=== PATIENT | male | born 1975 | race African-American/Black ===

== ENCOUNTER 2021-11-10 12:48 | Inpatient (IN) | payer MEDICAID ==
[~2021-11-10] VITALS: Ht 251.5 cm; Wt 58.6 kg
[2021-11-10] MEDS ORDERED: SODIUM CHLORIDE 0.9% 1,000 ML IV ONE (13:30)
[2021-11-10] MEDS ORDERED: MORPHINE SULFATE 2 MG/ML CPJ (NOT FOR IM USE) IV ONE (13:30)
[2021-11-10] MEDS ORDERED: CHLORDIAZEPOXIDE 25MG CAPSULE PO ONE ×2 (14:00→17:45)
[2021-11-10 15:00] LABS: HEMATOCRIT. 44.8 % (42.0-52.0); HEMOGLOBIN. 14.9 g/dL (14.0-18.0); MEAN CORPUSCULAR VOLUME 99.7 fL (80.0-94.0); MEAN PLATELET VOLUME 8.8 fl (7.4-10.4); PLATELET 130 x1000/uL (130-400); RED CELL DISTRIBUTION WIDTH 14.5 % (11.6-14.6)
[2021-11-10 15:07] LABS: CHLORIDE 84 mEq/L (98-107)
[2021-11-10] MEDS ORDERED: ONDANSETRON HCL 4MG/2ML INJ IV PRN ×2 (15:30→20:15)
[2021-11-10] MEDS ORDERED: MORPHINE SULFATE 4 MG/ML CPJ (NOT FOR IM USE) IV ONE (15:45)
[2021-11-10 16:56] LABS: CLARITY URINE CLOUDY (CLEAR); COLOR URINE DARK YELLOW (YELLOW); KETONES URINE 3+ (NEGATIVE); LEUKOCYTE ESTERASE URINE TRACE (NEGATIVE); NITRITE URINE NEGATIVE (NEGATIVE); OCCULT BLOOD URINE 3+ (NEGATIVE); PROTEIN URINE 2+ (NEGATIVE); SPECIFIC GRAVITY URINE 1.023 (1.005-1.030)
[2021-11-10 17:04] LABS: PLATELET ESTIMATE NORMAL
[2021-11-10] MEDS ORDERED: DEXT 5%/0.9% NACL 1,000 ML IV ONE (17:15)
[2021-11-10] MEDS ORDERED: CEFTRIAXONE 2 G PREMIX 50 ML IV ONE (17:45)
[2021-11-10] MEDS ORDERED: CEFTRIAXONE 2 G in DEXTROSE 5% WATER 50 ML IV NR (18:30)
[2021-11-10 20:00] VITALS: BP 136/80
[2021-11-10] MEDS ORDERED: FOLIC ACID 1 MG, THIAMINE HCL 100 MG, MVI, ADULT NO.1 10 ML in DEXTROSE 5% WATER 1,000 ML IV NR ×4 (20:00)
[2021-11-10] MEDS ORDERED: GUAIFENESIN 200MG/10ML SUGAR FREE UDC PO PRN (20:15)
[2021-11-10] MEDS ORDERED: MAGNESIUM/ALUMINUM HYDROXIDE/SIMETHICONE 30ML UDC PO PRN (20:15)
[2021-11-10] MEDS ORDERED: MORPHINE SULFATE 2 MG/ML CPJ (NOT FOR IM USE) IV PRN (20:15)
[2021-11-10] MEDS ORDERED: DIPHENHYDRAMINE 50MG/ML VIAL IV PRN (20:15)
[2021-11-10] MEDS ORDERED: IPRATROPIUM/ALBUTEROL 0.5-3(2.5)MG/3ML NEB HHN PRN (20:15)
[2021-11-10] MEDS ORDERED: DIAZEPAM 5 MG/ML 2ML CPJ IV PRN (20:15)
[2021-11-10] MEDS ORDERED: DOCUSATE SODIUM 100MG CAPSULE PO PRN (20:15)
[2021-11-10] MEDS ORDERED: CLONIDINE 0.1MG TABLET PO PRN (20:15)
[2021-11-10] MEDS ORDERED: HYDROCODONE/ACETAMINOPHEN 5/325MG TABLET PO PRN (20:15)
[2021-11-10 22:00] VITALS: BP 134/80
[2021-11-10] MEDS ORDERED: CEFTRIAXONE 1,000 MG in DEXTROSE 5% WATER 50 ML IV SCH (22:00)
[2021-11-10] MEDS: SODIUM BICARBONATE 150 MEQ in SODIUM CHLORIDE 0.45% 1,000 ML IV SCH (22:55)
[2021-11-10] MEDS: CHLORDIAZEPOXIDE 25MG CAPSULE PO SCH (23:08)
[2021-11-11] MEDS ORDERED: DEXT 5%/LACTATED RINGERS 1,000 ML IV SCH (04:00)
[2021-11-11] MEDS: CHLORDIAZEPOXIDE 25MG CAPSULE PO SCH ×3 (05:14→21:08)
[2021-11-11] MEDS: SODIUM BICARBONATE 150 MEQ in SODIUM CHLORIDE 0.45% 1,000 ML IV SCH ×2 (05:27→13:59)
[2021-11-11 08:00] VITALS: BP 130/84
[2021-11-11] MEDS: MULTIVITAMINS,THER W-MINERALS TABLET PO SCH (08:27)
[2021-11-11] MEDS: THIAMINE HCL 100MG TABLET PO SCH (08:27)
[2021-11-11] MEDS ORDERED: CEFTRIAXONE 1 G PREMIX 50 ML IV SCH (09:00)
[2021-11-11 11:44] LABS: BASOPHILS % 0.2 % (0.0-2.0); EOSINOPHILS % 0.1 % (0.0-5.0); HEMATOCRIT. 38.8 % (42.0-52.0); HEMOGLOBIN. 13.5 g/dL (14.0-18.0); LYMPHOCYTES % 13.1 % (20.0-50.0); MEAN CORPUSCULAR HEMOGLOBIN 33.7 pg (28.0-32.0); MEAN CORPUSCULAR VOLUME 97.4 fL (80.0-94.0); MEAN PLATELET VOLUME 9.2 fl (7.4-10.4); MONOCYTES % 4.3 % (2.0-8.0); NEUTROPHILS % 82.3 % (40.0-76.0); PLATELET 96 x1000/uL (130-400); RED BLOOD CELL COUNT 3.99 mill/uL (4.7-6.1); RED CELL DISTRIBUTION WIDTH 14.3 % (11.6-14.6)
[2021-11-11 12:00] VITALS: BP 103/66
[2021-11-11 12:09] LABS: CHLORIDE 90 mEq/L (98-107)
[2021-11-11 12:44] LABS: BETA HYDROXYBUTYRATE 0.5 mMol/L (0.0-0.3); HDL CHOLESTEROL 94 mg/dL (40-59); LDL CHOLESTEROL 48 mg/dL (5-100)
[2021-11-11 13:02] LABS: HEPATITIS B SURFACE ANTIGEN NEGATIVE
[2021-11-11 13:17] LABS: CREATINE KINASE 11572 IU/L (39-308)
[2021-11-11 16:00] VITALS: BP 113/80
[2021-11-11] MEDS ORDERED: NALOXONE HCL 0.4MG/ML VIAL IV PRN (17:00)
[2021-11-11] MEDS: CEFTRIAXONE 1,000 MG in DEXTROSE 5% WATER 50 ML IV SCH (17:27)
[2021-11-11] MEDS: PANTOPRAZOLE SODIUM 40 MG/VIAL IV SCH (17:43)
[2021-11-11 18:36] LABS: TOTAL IRON BINDING CAPACITY 365 ug/dL (250-450)
[2021-11-11 18:39] LABS: PROTHROMBIN TIME 10.8 sec (9.6-11.0)
[2021-11-11 19:05] LABS: FOLIC ACID (FOLATE) SERUM >20 ng/mL ng/mL (>5.38); VITAMIN B12 SERUM 906 pg/mL (211-911)
[2021-11-11] MEDS: NICOTINE 14MG PATCH TD SCH (19:55)
[2021-11-11 20:00] VITALS: BP 105/73
[2021-11-11 20:17] LABS: FERRITIN 2261 ng/mL (22-322)
[2021-11-11] MEDS ORDERED: DIAZEPAM 5 MG TABLET PO PRN (21:15)
[2021-11-12] VITALS: BP 128/78
[2021-11-12] MEDS: SODIUM BICARBONATE 150 MEQ in SODIUM CHLORIDE 0.45% 1,000 ML IV SCH ×2 (00:04→09:10)
[2021-11-12] MEDS: DIAZEPAM 5 MG TABLET PO PRN (01:51)
[2021-11-12 04:00] VITALS: BP 117/78
[2021-11-12] MEDS: CHLORDIAZEPOXIDE 25MG CAPSULE PO SCH ×3 (05:23→20:52)
[2021-11-12 08:00] VITALS: BP 117/79
[2021-11-12] MEDS: NICOTINE 14MG PATCH TD SCH (09:09)
[2021-11-12] MEDS: PANTOPRAZOLE SODIUM 40 MG/VIAL IV SCH (09:09)
[2021-11-12] MEDS: MULTIVITAMINS,THER W-MINERALS TABLET PO SCH (09:09)
[2021-11-12] MEDS: THIAMINE HCL 100MG TABLET PO SCH (09:09)
[2021-11-12] MEDS ORDERED: FAMOTIDINE 20MG/2ML VIAL IV SCH (10:00)
[2021-11-12 11:01] LABS: BASOPHILS % 0.2 % (0.0-2.0); EOSINOPHILS % 0.7 % (0.0-5.0); HEMATOCRIT. 36.1 % (42.0-52.0); HEMOGLOBIN. 12.1 g/dL (14.0-18.0); LYMPHOCYTES % 19.8 % (20.0-50.0); MEAN CORPUSCULAR HEMOGLOBIN 33.3 pg (28.0-32.0); MEAN CORPUSCULAR VOLUME 99.7 fL (80.0-94.0); MEAN PLATELET VOLUME 9.4 fl (7.4-10.4); NEUTROPHILS % 72.3 % (40.0-76.0); PLATELET 77 x1000/uL (130-400); RED BLOOD CELL COUNT 3.62 mill/uL (4.7-6.1); RED CELL DISTRIBUTION WIDTH 13.8 % (11.6-14.6)
[2021-11-12 12:00] VITALS: BP 108/77
[2021-11-12] MEDS: SODIUM CHLORIDE 0.9% 1,000 ML IV SCH ×2 (12:21→20:53)
[2021-11-12 14:21] LABS: CHLORIDE 92 mEq/L (98-107)
[2021-11-12] MEDS ORDERED: POTASSIUM CHLORIDE 20MEQ TABLET SR PO NR (15:45)
[2021-11-12 16:00] VITALS: BP 113/73
[2021-11-12] MEDS: CEFTRIAXONE 1,000 MG in DEXTROSE 5% WATER 50 ML IV SCH (17:17)
[2021-11-12 20:00] VITALS: BP 116/83
[2021-11-12] MEDS: FAMOTIDINE 20MG TABLET PO SCH (20:52)
[2021-11-12] MEDS ORDERED: CHLO25CA10 MT (22:19)
[2021-11-13] VITALS: BP 104/74
[2021-11-13] MEDS: DIAZEPAM 5 MG TABLET PO PRN (01:37)
[2021-11-13 04:00] VITALS: BP 106/79
[2021-11-13 04:19] LABS: BASOPHILS % 0.5 % (0.0-2.0); EOSINOPHILS % 1.4 % (0.0-5.0); HEMATOCRIT. 37.1 % (42.0-52.0); HEMOGLOBIN. 12.4 g/dL (14.0-18.0); LYMPHOCYTES % 22.2 % (20.0-50.0); MEAN CORPUSCULAR HEMOGLOBIN 33.2 pg (28.0-32.0); MEAN CORPUSCULAR VOLUME 99.4 fL (80.0-94.0); MEAN PLATELET VOLUME 8.2 fl (7.4-10.4); MONOCYTES % 11.6 % (2.0-8.0); NEUTROPHILS % 64.3 % (40.0-76.0); PLATELET 100 x1000/uL (130-400); RED BLOOD CELL COUNT 3.73 mill/uL (4.7-6.1); RED CELL DISTRIBUTION WIDTH 14.1 % (11.6-14.6)
[2021-11-13 04:51] LABS: CHLORIDE 99 mEq/L (98-107)
[2021-11-13] MEDS: SODIUM CHLORIDE 0.9% 1,000 ML IV SCH (04:58)
[2021-11-13 04:59] LABS: CREATINE KINASE 5442 IU/L (39-308)
[2021-11-13] MEDS: CHLORDIAZEPOXIDE 25MG CAPSULE PO SCH (04:59)
[2021-11-13 07:30] VITALS: BP 121/87
[2021-11-13 08:00] VITALS: BP 121/87
[2021-11-13] MEDS: THIAMINE HCL 100MG TABLET PO SCH (08:20)
[2021-11-13] MEDS: FAMOTIDINE 20MG TABLET PO SCH (08:20)
[2021-11-13] MEDS: MULTIVITAMINS,THER W-MINERALS TABLET PO SCH (08:20)
[2021-11-13] MEDS: NICOTINE 14MG PATCH TD SCH (08:20)
== END 2021-11-13 08:51 | disposition home or self-care (01) | DRG 280 ==
LOC: ER 12:48 → 8WST 18:07 → ENRESERV 18:41
PROVIDERS: ADMIT Family Medicine Adult Medicine; ATTEND Family Medicine Adult Medicine
DX: K70.30 Alcoholic cirrhosis of liver without ascites (principal); K70.10 Alcoholic hepatitis without ascites; K65.2 Spontaneous bacterial peritonitis; E87.2 Acidosis; M62.82 Rhabdomyolysis; N17.9 Acute kidney failure, unspecified; R16.0 Hepatomegaly, not elsewhere classified; E87.1 Hypo-osmolality and hyponatremia; E86.0 Dehydration; D64.9 Anemia, unspecified; S20.219A Contusion of unspecified front wall of thorax, initial encounter; E87.8 Other disorders of electrolyte and fluid balance, not elsewhere classified; J45.909 Unspecified asthma, uncomplicated; N40.0 Benign prostatic hyperplasia without lower urinary tract symptoms; D72.829 Elevated white blood cell count, unspecified; I10 Essential (primary) hypertension; R80.9 Proteinuria, unspecified; G40.909 Epilepsy, unspecified, not intractable, without status epilepticus; F10.239 Alcohol dependence with withdrawal, unspecified; F12.90 Cannabis use, unspecified, uncomplicated; F17.210 Nicotine dependence, cigarettes, uncomplicated; Z79.899 Other long term (current) drug therapy; Z63.4 Disappearance and death of family member; W19.XXXA Unspecified fall, initial encounter; Y93.89 Activity, other specified; Y92.89 Other specified places as the place of occurrence of the external cause; Y99.8 Other external cause status
CPT/HCPCS: 36415; 71045; 71120; 71250; 74176; 76700; 80048; 80053; 80061; 80076; 81003; 82010; 82140; 82248; 82533; 82550; 82607; 82728; 82746; 83540; 83550; 83605; 83880; 83930; 84443; 84484; 85025; 85044; 86705; 86709; 86803; 87340; 93005; 99285; C9113; J0696; J2270; J2405; J3411; J3490; J7030; J7042; J7060; J7070